=== PATIENT | male | born 2000 | race Caucasian/White ===

== ENCOUNTER 2024-06-24 23:48 | Emergency (ER) | payer OTHER ==
[~2024-06-24] VITALS: Ht 165.1 cm; Wt 82.0 kg
[2024-06-25 00:04] VITALS: TEMP 98.7; O2SAT 98
[2024-06-25] MEDS ORDERED: IBUPROFEN 600MG TABLET PO STA (01:42)
[2024-06-25] MEDS ORDERED: IBUP-2029 MT (03:39)
[2024-06-25 03:56] VITALS: BP 128/87; PULSE 82; RESP 18
== END 2024-06-25 03:57 | disposition home or self-care (01) ==
LOC: ER 06-25 00:39
DX: S01.01XA Laceration without foreign body of scalp, initial encounter (principal); X58.XXXA Exposure to other specified factors, initial encounter; Y93.89 Activity, other specified; Y92.89 Other specified places as the place of occurrence of the external cause; Y99.8 Other external cause status
CPT/HCPCS: 12002; 99284